=== PATIENT | male | born 1950 ===

== ENCOUNTER 2023-07-24 01:10 | Emergency (ER) | payer SELFPAY ==
--- NOTE | 2023-07-24 | ECG_ITS ---
Test Reason : STROKE Blood Pressure : / mmHG Vent. Rate : 089 BPM Atrial Rate : 089 BPM P-R Int : 162 ms QRS Dur : 086 ms QT Int : 362 ms P-R-T Axes : 055 -16 061 degrees QTc Int : 440 ms Normal sinus rhythm Normal ECG No previous ECGs available Referred By: Zackery Topete Electronically Signed By:
--- NOTE | ~2023-07-24 | CT_ITS ---
EXAMINATION: CT HEAD WITHOUT CONTRAST (STROKE PROTOCOL) CLINICAL INFORMATION: rt mouth droop, rt leg and arm weakness COMPARISON: None available. TECHNIQUE: Contiguous axial imaging was performed from the skull base to vertex without intravenous administration of contrast. This CT examination was performed using dose optimization techniques as appropriate, variously including the following: *Automated exposure control *Adjustment of mA and/or kV according to patient size (this includes techniques or standardized protocols for targeted exams where dose is matched to indication/reason for exam; i.e. extremities or head) *Use of iterative reconstruction technique DLP: 788 mGy-cm FINDINGS: There is an intraparenchymal hemorrhage in the region of the left thalamus/basal ganglia measuring up to approximately 2.6 x 2.4 cm in the axial plane and up to 3.2 cm in the coronal plane. There is mild localized mass effect with partial effacement of the left lateral ventricle. There is associated 4 mm rightward midline shift at this level. There is no evidence of acute territorial infarction. [place] to white matter differentiation is well preserved. No extra-axial fluid collections are identified. No hydrocephalus. There is moderate periventricular white matter hypoattenuation which may represent chronic small vessel ischemic disease versus demyelinating disease in the proper clinical setting. Mild volume loss is noted. The osseous structures and soft tissues are normal. Partially opacified right frontal sinus. Mucosal thickening of the bilateral ethmoid air cells. Partially opacified right mastoid tip air cells. CT/CT head for stroke IMPRESSION: Intraparenchymal hemorrhage in the region of the left thalamus/basal ganglia measuring up to 3.2 cm. Mild localized mass effect with partial effacement of the left lateral ventricle and 4 mm rightward midline shift. This critical result was discussed with Dr. Mckeon on 07/24/2023 1:36 AM, and it was ascertained that the content and urgency of the report was understood at the time of direct communication.
[2023-07-24 06:30] LABS: Partial Thromboplastin Time 32.2 SEC (26.0-36.8); Prothrombin Time 11.8 SEC (11.1-13.3)
[2023-07-24 06:32] LABS: Troponin-I High Sensitivity < 2.7 ng/L (<3.5-35.0)
[2023-07-24 06:34] LABS: Anion Gap 13 (12-20); Blood Urea Nitrogen 12 mg/dL (9-16); Carbon Dioxide 25 mmol/L (22-29); Chloride 104 mmol/L (96-108); Potassium 3.8 mmol/L (3.3-5.1); Sodium 138 mmol/L (135-145)
[2023-07-24 06:35] LABS: Alanine Aminotransferase 42 U/L (0-40); Albumin Level 4.6 g/dL (3.5-5.0); Alkaline Phosphatase 64 U/L (39-117); Aspartate Amino Transferase 27 U/L (5-37); Bilirubin Direct 0.3 mg/dL (0.0-0.5); Bilirubin Total 0.6 mg/dL (0.0-1.0); Calcium 9.8 mg/dL (8.4-10.2); Estimated Glomerular Filt Rate > 60; Ethanol 11 mg/dL; Glucose Random 158 mg/dL (60-115)
[2023-07-24 06:36] LABS: Lactic Acid 2.2 mmol/L (0.5-2.0)
[2023-07-24 06:37] LABS: Reflex Lactate? Lactic Acid Added
[2023-07-24 06:40] LABS: MANUAL DIFF FLAG NO
[2023-07-24 06:48] LABS: Basophils Percent Auto 0.5 % (0-2); Hematocrit 39.6 % (42.0-52.0); Imm Gran Abs Auto 0.01 X10*3/uL (0.00-0.03); Imm Gran Pct Auto 0.3 % (0.0-0.4); Lymphocytes Percent Auto 27.1 % (20-40); Mean Corpuscular HGB Conc 32.8 g/dl (31.0-36.0); Mean Corpuscular Hemoglobin 28.5 pg (27.0-33.0); Mean Corpuscular Volume 86.8 fL (80.0-98.0); Mean Platelet Volume 10.8 fL (9.4-12.4); Monocytes Absolute Auto 0.4 X10*3/uL (0.1-1.2); Monocytes Percent Auto 9.6 % (2-11); Neutrophils Absolute Auto 2.4 x10*3/uL (2.0-8.3); Neutrophils Percent Auto 61.5 % (45-73); Platelet Count 168 X10*3/uL (160-400); Red Blood Count 4.56 X10*6/uL (4.60-5.80); Red Cell Distribution Width 12.5 % (11.0-16.0); White Blood Count 3.8 X10*3/uL (4.8-10.8)
[2023-07-24 07:28] LABS: Glucose, Whole Blood 161 mg/dL (60-115)
[2023-07-24 10:21] LABS: INR Whole Blood 1.1 (0.9-1.1); Prothrombin Time Whole Blood 13.2 sec (11.1-13.5)
[2023-07-24 12:13] LABS: Prothrombin Time Whole Bld POC 13.2 sec (11.1-13.5); ~PT, ~INR - Anti Coag Clinic 1.1 (0.9-1.1)
[2023-07-25 12:06] VITALS: BP 159/72; PULSE 98; RESP 16; TEMP 36.8; O2SAT 98
== END 2023-07-24 03:05 | disposition short-term general hospital (02) ==
PROVIDERS: Emergency Provider Emergency Medicine
DX: I61.0 Nontraumatic intracerebral hemorrhage in hemisphere, subcortical (principal); R47.1 Dysarthria and anarthria; I10 Essential (primary) hypertension
CPT/HCPCS: 36415; 70450; 80053; 80307; 82248; 82947; 83605; 84484; 85025; 85610; 85730; 93005; 99285